=== PATIENT | female | born 1985 | race Caucasian/White ===

== ENCOUNTER → 2024-01-13 08:01 | Outpatient (REF) | payer OTHER, SELFPAY | LOC: RAD 08:01 | PROVIDERS: ATTENDING PHYSICIAN Nurse Practitioner Family | DX: M25.572 Pain in left ankle and joints of left foot (principal); M25.571 Pain in right ankle and joints of right foot; M79.671 Pain in right foot | CPT/HCPCS: 73610; 73630 ==

== ENCOUNTER → 2024-03-18 11:25 | Outpatient (REF) | payer OTHER, SELFPAY | LOC: RAD 11:25 | PROVIDERS: ATTENDING PHYSICIAN Nurse Practitioner Family | DX: R10.829 Rebound abdominal tenderness, unspecified site (principal) | CPT/HCPCS: 76700 ==

== ENCOUNTER 2024-07-25 19:16 | Emergency (ER) | payer OTHER, SELFPAY ==
[2024-07-25 19:20] VITALS: BP 105/76
--- NOTE | 2024-07-25 20:14 | ED.GENMED ---
History of Present Illness
General
Chief Complaint: Headache
Source: patient and healthcare interpreter ([id number])
Exam Limitations: none
Time Seen by Provider: 07/25/24 20:13
Nursing documentation reviewed up to this point in time: agreed with
History of Present Illness
History of Present Illness:
39 yo female [place] speaking only, used Language [employer], pt with history of headaches is here for headache on top of head to posterior L side of head and upper L neck. she has had similar h/a in the past, 'once every 2-3 or 4-5 months, and
sometimes twice in one month.' Has seen her PCP and referred to Neurology but states she can't get in to see a Neurologist. She states she vomited x 1 earlier today, denies nausea now. Denies change in vision, weakness, numbness in extremities. She
got relief after taking a powder her , who is a pile driver engineer, got one dose for her 'somewhere.' It was 'Goody's extra strength headache powder' as noted in Triage note. States h/a now 5/10, was 9/10 earlier today and she 'couldn't move my head.'
She gets no relief with Tylenol or Ibuprofen, some relief with ASA.
Past History
Past History
ED Past Medical History: Other (headaches)
ED Past Surgical History: None
Social History
Tobacco: Non-smoker
Alcohol: None
Personal:
Living: with family
Employment: Not employed
Review of Systems
Review of Systems
Allergies reviewed?: Yes
All Other Systems: ROS reviewed and negative except as documented in HPI and ROS
Constitutional: Denies fever or fatigue
Respiratory: Denies trouble breathing
Cardiac: Denies chest pain
ABD/GI: Denies abdominal pain, nausea, vomiting or diarrhea
: Reports bleeding (thinks she started her period earlier this week); Denies dysuria, frequency or difficulty voiding
Musculoskeletal: Reports no symptoms
Skin: Reports no symptoms
Neurological: Reports headache; Denies dizzy, weakness or numbness
Phy Exam
Physical Exam
Physical Exam:
GENERAL: No acute distress. A&Ox3.
CONSTITUTIONAL: Afebrile.
EYES: clear, conjunctivae normal
ENMT: moist mucus membranes, Pharynx nl
RESPIRATORY: Regular respirations, nonlabored, lungs clear.
CARDIOVASCULAR: Regular rate and rhythm, no murmurs, no rubs.
GI: Soft, nontender, normal BS
MUSCULOSKELETAL: Moves with ease. Well perfused.
SKIN: Warm, dry, pink
PSYCH: Normal mood and affect. Well kept, interactive and appropriate
NEUROLOGIC: Awake, alert and oriented. CN 2-12 intact.Finger to nose intact. Ambulates well with steady gait. No focal neurological deficits
Course
Orders/Labs/Results
Orders:
Orders
07/25/24 21:06
Ketorolac [Toradol] 30 mg IM NOW STA
07/25/24 21:07
CT Head W/o Iv Contrast Urgent
Comment:
Reason For Exam: L side headache
07/25/24 21:17
Beta Hcg Urine Qualitative Screen [HCG, Urine Qualitative Screen] Urgent
Date Specimen was Collected: 07/25/24
Time Specimen was Collected: 21:14
07/25/24 21:40
Add On- LAB Urgent
Tests Added?: Beta quantitative
07/25/24 21:47
US W Transvaginal Urgent
Reason For Exam: bleeding in early
07/25/24 22:01
Beta HCG Quantitative Urgent
Is this a screen?: No
Vital Signs
Initial and Last Documented VS:
Initial Vital Signs
Temp Pulse Resp BP Pulse Ox
98.4 F 81 16 105/76 99
07/25/24 19:20 07/25/24 19:20 07/25/24 19:20 07/25/24 19:20 07/25/24 19:20
Last Documented Vital Signs
Temp Pulse Resp BP Pulse Ox
98.4 F 80 16 110/80 100
07/25/24 19:20 07/26/24 02:12 07/26/24 02:12 07/26/24 02:12 07/26/24 02:12
MDM/Problems Addressed
Differential Diagnosis Includes:
threatened miscarriage, subchorionic hemorrhage
primary headache, migraine
MDM/Problems Addressed:
39 yo female [place] speaking only, used Language [employer], pt with history of headaches is here for headache on top of head to posterior L side of head and upper L neck. she has had similar h/a in the past, 'once every 2-3 or 4-5 months, and
sometimes twice in one month.' Has seen her PCP and referred to Neurology but states she can't get in to see a Neurologist. She states she vomited x 1 earlier today, denies nausea now. Denies change in vision, weakness, numbness in extremities. She
got relief after taking a powder her , who is a pile driver engineer, got one dose for her 'somewhere.' It was 'Goody's extra strength headache powder' as noted in Triage note. States h/a now 5/10, was 9/10 earlier today and she 'couldn't move my head.'
She gets no relief with Tylenol or Ibuprofen, some relief with ASA.
Pt states her LMP was in May, she also started bleeding again 5 days ago, states she had a neg home test earlier this week.
Urine beta HCG positive
Beta HCG 638.91
Pelvic US radiology report read: No intrauterine gestational sac identified. No sonographically demonstrable adnexal mass or direct sonographic evidence to suggest ectopic at this time. Advise correlation with serial quantitative beta hCG,
and consider follow-up ultrasound if indicated.
No free pelvic fluid.The ovaries are unremarkable. 2.7 cm posterior uterine fundal fibroid.
Through healthcare interpreter pt results discussed, all questions answered, discharge instructions reviewed. Copy of report given to pt.
Patient states she has a [employer] doctor she will contact on Saturday
After Toradol H/A improved, 08/17 only on top of head now
CT head neg
Patient referred to neurology
Pt ambulated out with normal gait at discharge
*Critical Care Note
Total Time (30-74mins, 75-104mins- exclusive of procedures): Not Applicable
ED Attending Note
-
Portions of this chart may have been created with voice recognition software.� Occasional wrong word or��sound alike� substitutions may have occurred due to the inherent limitations of voice recognition software.
Discharge Plan
Departure
Patient Disposition: Home (Routine Discharge)
Date of Disposition: 07/26/24
Time of Disposition: 02:00
Patient with high blood pressure during this ER visit?: No
Condition: Good
Discharge Problem:
Headache, Threatened miscarriage in early
Instructions: Headache, Adult (DC), Bleeding in early - Discharge instructions
Referrals:
Your, [employer] doctor [Other] - Follow up in 2-3 days
Karina Cuevas MD [Active] - Next open appointment
Louise Chowdhury DO [Family Provider] -
Activity Restrictions/Additional Instructions:
As we discussed, since the Goody's extra-strength headache powder helps you, you may continue that for your headaches
Your head CT is normal
Your pelvic ultrasound results were discussed with you, there is no visible on the ultrasound but your hormone level or the beta hCG level is very low. This could be from having a very early or you may be experiencing a
miscarriage.
Please discuss with your [employer] doctor on Saturday and have your beta hCG rechecked as they recommend (most likely within 3 to 4 days).
Interventions
Interventions:
*Risk Screen - Suicide Last Done: 07/25/24 19:20
*General Assessment Last Done: 07/25/24 19:20
*Neglect/Abuse Screening Last Done: 07/25/24 19:20
ED- Fall Risk Assessment Last Done: 07/25/24 23:00
*ED COVID-19 Vaccine History Last Done: 07/25/24 19:20
*Nursing Disposition Last Done: 07/26/24 02:12
ED- Neurological Assessment Last Done: 07/25/24 21:20
Discharge Date and Time
Discharge Date/Time: 07/26/24 02:13
Print Language: Ukranian
[2024-07-25] MEDS: TORADOL 30 MG IM (21:10)
[2024-07-25 21:33] LABS: HCG, Urine Qualitative Screen Positive
[2024-07-25 22:41] LABS: Beta HCG Quantitative 638.91 mIU/ml
[2024-07-26 02:12] VITALS: BP 110/80
== END 2024-07-26 02:13 | disposition home or self-care (01) ==
LOC: EMR 19:16
PROVIDERS: Registered Nurse; EMERGENCY PHYSICIAN Emergency Medicine; FAMILY PHYSICIAN Family Medicine
DX: O20.0 Threatened abortion (principal); R51.9 Headache, unspecified; R11.10 Vomiting, unspecified; D25.9 Leiomyoma of uterus, unspecified
CPT/HCPCS: 99284; 96372; 70450; 76801; 76817; 81025; 84702